=== PATIENT | female | born 1980 | race Asian ===

== ENCOUNTER 2019-02-07 08:49 | Day surgery (SDC) | payer OTHER ==
[~2019-02-07] VITALS: Ht 162.6 cm; Wt 74.9 kg
== END 2019-02-07 11:05 | disposition home or self-care (01) ==
LOC: OR 08:49
PROC: 3E0T3BZ Introduction of Anesthetic Agent into Peripheral Nerves and Plexi, Percutaneous Approach (ICD-10-PCS; principal; 2019-02-07)
PROC: 3E0T33Z Introduction of Anti-inflammatory into Peripheral Nerves and Plexi, Percutaneous Approach (ICD-10-PCS; 2019-02-07)
DX: G90.512 Complex regional pain syndrome I of left upper limb (principal)
CPT/HCPCS: J1100; J2001